=== PATIENT | male | born 1950 | race Caucasian/White ===

== ENCOUNTER 2021-12-25 09:22 | Outpatient (CLI) | payer MEDICARE, BC | END 2021-12-25 09:23 | disposition home or self-care (01) | LOC: CSHLAB 09:22 | PROVIDERS: ATTEND Internal Medicine Critical Care Medicine | DX: Z20.822 Contact with and (suspected) exposure to COVID-19 (principal) | CPT/HCPCS: U0003; U0005 ==

== ENCOUNTER 2021-12-30 08:55 | Outpatient (CLI) | payer MEDICARE, BC | END 2021-12-30 08:56 | disposition home or self-care (01) | LOC: CSHCP 08:55 | PROVIDERS: ATTEND Internal Medicine Critical Care Medicine | DX: J84.9 Interstitial pulmonary disease, unspecified (principal); J44.9 Chronic obstructive pulmonary disease, unspecified | CPT/HCPCS: 94060; 94726; 94729; 94760 ==

== ENCOUNTER 2023-02-09 07:18 | Outpatient (CLI) | payer MEDICARE, BC | END 2023-02-09 07:19 | disposition home or self-care (01) | LOC: CSHCP 07:18 | PROVIDERS: ATTEND Internal Medicine Critical Care Medicine | DX: J84.9 Interstitial pulmonary disease, unspecified (principal); J44.9 Chronic obstructive pulmonary disease, unspecified; J98.4 Other disorders of lung | CPT/HCPCS: 94060; 94726; 94729; 94760 ==

== ENCOUNTER 2024-05-10 07:28 | Outpatient (CLI) | payer MEDICARE, BC | END 2024-05-10 07:29 | disposition home or self-care (01) | LOC: CSHCP 07:28 | PROVIDERS: ATTEND Internal Medicine Critical Care Medicine | DX: J84.9 Interstitial pulmonary disease, unspecified (principal) | CPT/HCPCS: 94060; 94664; 94726; 94729; 94760 ==

== ENCOUNTER 2025-06-05 08:15 | Outpatient (CLI) | payer MEDICARE, BC | END 2025-06-05 08:16 | disposition home or self-care (01) | LOC: CSHCP 08:15 | PROVIDERS: ATTEND Internal Medicine Critical Care Medicine | DX: J84.9 Interstitial pulmonary disease, unspecified (principal) | CPT/HCPCS: 94726; 94760 ==